=== PATIENT | female | born 1975 | race Caucasian/White ===

== ENCOUNTER 2017-03-30 11:39 | Emergency (ER) | payer BC, OTHER ==
--- NOTE | 2017-03-30 15:53 | Emergency Department Record ---
History of Present Illness - General Chief complaint: Extremity Problem Stated complaint: CRAMP LT LEG Time Seen by Provider: 03/30/17 15:52 Source: Patient Mode of Arrival: Ambulatory - History of Present Illness Initial comments: The patient was awakened from sleep Friday morning 03-28-17 with a severe pain in her left calf and behind her knee. She hoped it would get better on Friday, but it was worse yesterday and swollen compared to the other leg. She is a NONsmoker, is not on hormone therapy, and denies a family history of clotting that she knows of. She has never had any blood clots herself. She went to another urgent care but it was closed. She denies CP, ARMOND, SOB. MD Complaint: Extremity pain, Extremity swelling Onset/Timin -: Days(s) Location: Left, Lower Leg, Thigh History of Same: No Severity scale (1-10): 3 Quality: Aching Consistency: Constant Improves with: Immobilization Worsens with: Exertion, Walking Associated Symptoms: Denies other symptoms - Related Data Home Medications Medication Instructions Recorded Confirmed Last Taken Iron/FA/Dha/Epa/Fad/Nadh/Mv47 1 each PO DAILY 03/30/17 03/30/17 Unknown [Enlyte Softgel] Methylphenidate HCl 54 mg PO DAILY 03/30/17 03/30/17 Unknown [Methylphenidate ER] Vortioxetine Hydrobromide 10 mg PO DAILY 03/30/17 03/30/17 Unknown [Brintellix] Allergies Allergy/AdvReac Type Severity Reaction Status Date / Time No Known Drug Allergies Allergy Verified 01/11/15 19:57 Travel Screening - Travel/Exposure Within Last 30 Days Have you traveled within the last 30 days?: No Review of Systems Reviewed: No additional complaints except as noted below Constitutional: Reports: As per HPI. Denies: Chills, Fever, Malaise, Night sweats, Weakness, Weight change Eyes: Reports: As per HPI. Denies: Eye discharge, Eye pain, Photophobia, Vision change ENT: Reports: As per HPI. Denies: Congestion, Dental pain, Ear pain, Epistaxis , Hearing loss, Throat pain Respiratory: Reports: As per HPI. Denies: Cough, Dyspnea, Hemoptysis, Stridor, Wheezes Cardiovascular: Reports: As per HPI. Denies: Arrhythmia, Chest pain, Dyspnea on exertion, Edema, Murmurs, Orthopnea, Palpitations, Paroxysmal nocturnal dyspnea, Rheumatic Fever, Syncope Endocrine: Reports: As per HPI. Denies: Fatigue, Heat or cold intolerance, Polydipsia, Polyuria Gastrointestinal: Reports: As per HPI. Denies: Abdominal pain, Constipation, Diarrhea, Hematemesis, Hematochezia, Melena, Nausea, Vomiting Genitourinary: Reports: As per HPI. Denies: Abnormal menses, Discharge, Dyspareunia, Dysuria, Frequency, Hematuria, Incontinence, Retention, Urgency Musculoskeletal: Reports: As per HPI. Denies: Arthralgia, Back pain, Gout, Joint swelling, Myalgia, Neck pain Skin: Reports: As per HPI. Denies: Bruising, Change in color, Change in hair/ nails, Lesions, Pruritus, Rash Neurological: Reports: As per HPI. Denies: Abnormal gait, Confusion, Headache, Numbness, Paresthesias, Seizure, Tingling, Tremors, Vertigo, Weakness Psychiatric: Reports: As per HPI. Denies: Anxiety, Auditory hallucinations, Depression, Homicidal thoughts, Suicidal thoughts, Visual hallucinations Hematological/Lymphatic: Reports: As per HPI. Denies: Anemia, Blood Clots, Easy bleeding, Easy bruising, Swollen glands Past Medical History - SOCIAL HISTORY Smoking Status: Former smoker Alcohol Use: None Drug Use: None - RESPIRATORY Hx Respiratory Disorders: No - CARDIOVASCULAR Hx Cardio Disorders: No - NEURO Hx Neuro Disorders: No - GI Hx GI Disorders: No - Hx Genitourinary Disorders: No - ENDOCRINE Hx Endocrine Disorders: No - MUSCULOSKELETAL Hx Musculoskeletal Disorders: No - PSYCH Hx Psych Problems: No - HEMATOLOGY/ONCOLOGY Hx Hematology/Oncology Disorders: No Family Medical History Any Significant Family History?: No Physical Exam - General General Appearance: Alert, Oriented x3, Cooperative, No acute distress - Head Head exam: Normal inspection - Eye Eye exam: Normal appearance, PERRL, EOMI Pupils: Normal accommodation - ENT ENT exam: Normal exam, Mucous membranes moist, Normal external ear exam, Normal orophraynx, TM's normal bilaterally Ear exam: Normal external inspection. negative: External canal tenderness Nasal Exam: Normal inspection. negative: Discharge, Sinus tenderness Mouth exam: Normal external inspection, Tongue normal Teeth exam: Normal inspection. negative: Dental caries Throat exam: Normal inspection. negative: Tonsillar erythema, Tonsillar exudate - Neck Neck exam: Normal inspection, Full ROM. negative: Tenderness - Respiratory Respiratory exam: Normal lung sounds bilaterally. negative: Accessory muscle use, Decreased breath sounds, Prolonged expiratory, Rales, Respiratory distress , Rhonchi, Stridor, Wheezes - Cardiovascular Cardiovascular Exam: Regular rate, Normal rhythm, Normal heart sounds. negative : Tachycardia - GI/Abdominal GI/Abdominal exam: Soft, Normal bowel sounds. negative: Tenderness - Rectal Rectal exam: Deferred - exam: Deferred - Extremities Extremities exam: Normal inspection, Calf tenderness (Left proximal calf tenderness posteriorly and into popliteal region, left circumference difference is 2.5 cm greater than right), Full ROM, Normal capillary refill. negative: Tenderness - Back Back exam: Reports: Normal inspection, Full ROM. Denies: Muscle spasm, Rash noted, Tenderness - Neurological Neurological exam: Alert, Normal gait, Oriented X3, Reflexes normal - Psychiatric Psychiatric exam: Normal affect, Normal mood - Skin Skin exam: Dry, Intact, Normal color, Warm Course Vital Signs 03/30/17 12:54 Temperature 98.5 F Pulse Rate 78 Respiratory 18 Rate Blood Pressure 121/84 Pulse Ox 98 - Reevaluation(s) Reevaluation #1: DW Dr. Rosenberg at [facility] emergency attending who accepts patient in transfer ED to ED for ultrasound doppler of left leg. 03/30/17 16:38 Medical Decision Making - Management Options MDM Management: Additional Work-up Planned (e.g. ADM/Transfer/OP Study) (Drive by car to [facility] for doppler of your left leg.) Disposition Disposition: Transfer Clinical Impression: Tenderness of left calf, Swelling of calf Disposition: Acute Care Hospital Transfer Transfer To: [facility] Dr. Rosenberg Reason For Transfer: Ultrasound of left leg Accepting Physician: Time Discussed w/Accepting Physician: 16:39 Condition: (1) Good Instructions: Leg Edema (ED) Additional Instructions: Drive now to [facility] for ultrasound of your left leg. Quality - Quality Measures Quality Measures: N/A - Blood Pressure Screening Does Patient Have Any of the Following: No Blood Pressure Classification: Pre-Hypertensive BP Reading Systolic Measurement: 121 Diastolic Measurement: 84 Screening for High Blood Pressure: < Normal BP, F/U Not Required > [G8783]
== END 2017-03-30 16:54 | disposition short-term general hospital (02) ==
LOC: ER 11:39
DX: R60.0 Localized edema (principal); M79.662 Pain in left lower leg
CPT/HCPCS: 99283